=== PATIENT | male | born 1995 | race Caucasian/White ===

== ENCOUNTER 2024-05-28 08:01 | Emergency (ER) | payer OTHER, SELFPAY ==
--- NOTE | ~2024-05-28 | XR_ITS ---
EXAMINATION: XR SHOULDER, RIGHT CLINICAL INFORMATION: ?dislocation/relocation, R shoulder pain COMPARISON: None available. TECHNIQUE: AP external rotation, Grashey, scapular Y, and axillary views of the right shoulder. FINDINGS: No evidence of acute fracture. Glenohumeral and acromioclavicular alignment is anatomic with normal joint space. No abnormal soft tissue calcifications. 7 mm nonspecific sclerotic focus in the lateral humeral head. XR/XR shoulder RT min 2V IMPRESSION: No radiographic evidence of acute fracture or malalignment. Nonspecific 7 mm sclerotic focus in the lateral humeral head. Electronically signed by: Yamil Tapia MD 05/28/2024 09:19 AM [facility]
--- NOTE | 2024-05-28 08:05 | ED_ITS ---
HPI - Extremity Injury (Upper) General Chief Complaint: Extremity Injury, Upper Stated Complaint: ?SHLDR DISLOCATION PER EMS Time Seen by Provider: 05/28/24 08:05 Source: patient, EMS, RN notes reviewed and old records reviewed Mode of arrival: EMS History of Present Illness ED Provider: Susie Saxena PA-C HPI narrative: 28-year-old male with a past medical history of previous shoulder dislocation presenting to the ED via EMS complaining of right shoulder pain and ?Dislocation s/p hitting arm on ice machine at work [employer] at [employer]. States felt like arm popped out of place/heaard crack and was unable to move. Patient states he then shook his arm and feels as though he may put back into place. Reports continued pain and limited ROM secondary to pain. Denies numbness, tingling. Denies injury to the area. Related Data Allergies Allergy/AdvReac Type Severity Reaction Status Date / Time No Known Allergies Allergy Verified 05/28/24 08:17 Review of Systems Review of Systems: Yes all other systems are reviewed and are negative Constitutional: Constitutional: Reports as per HPI [facility] Past Medical History Attestation statement: The following information was validated with the patient. Source: old records reviewed Social History Social History Smoked in Last 30 Days: No Use of substances other than those prescribed or required for medical reasons: No Advance Directives: No Advance Directives Information Provided: Yes Physical Exam Vital Signs: Vital Signs: Last Vital Signs Temp 97.7 F 05/28/24 09:59 Pulse 78 05/28/24 09:59 Resp 16 05/28/24 09:59 BP 105/68 05/28/24 09:59 Pulse Ox 98 05/28/24 09:59 O2 Del Method Room Air 05/28/24 09:59 BMI result Body Mass Index 20.8 Const: General: cooperative, healthy appearing and no acute distress Orientation/consciousness: patient oriented x3 Limitations: no limitations HEENT: Head: Yes normal to inspection and Yes atraumatic Ears: hearing grossly normal bilaterally General nose exam: Normal external nose present Face and sinus: Yes normal facial exam Eyes: General: appearance normal, both eyes and all related structures EOM: EOMs intact bilaterally Neck: Neck: Yes normal visual inspection and Yes no meningeal signs Resp: Effort & Inspection: normal respiratory effort and no respiratory distress Cardio: Rate: regular rate Back/Spine/Pelvis: Other: No midline cervical/thoracic/lumbar spinous tenderness/step-off or deformity Skin: Rashes: no rashes Wounds: no wounds Neuro: General: patient oriented x3, tone normal and no meningeal signs Cranial nerves: Yes CN's II-XII intact bilaterally Gait exam (Neuro): Normal gait present Extrem: Other: Right shoulder without noted deformity. Diffusely tender to palpation. Limited ROM secondary to pain. Neurovascularly intact distally. No erythema/ecchymosis or warmth General: Yes normal to inspection Course Course Course Narrative: XR shoulder RT min 2V IMPRESSION: No radiographic evidence of acute fracture or malalignment. Nonspecific 7 mm sclerotic focus in the lateral humeral head. Results discussed with patient > will give sling for 2 days due to possible dislocation/relocation and pain management, although of lower suspicion. -Discussed worrisome signs and symptoms and strict return precautions, and when to return to the emergency department. They verbalized understanding and feel safe for discharge at this time. Medications Administered Discontinued Medications Generic Name Dose Route Start Last Admin Trade Name Freq PRN Reason Stop Dose Admin Ketorolac Tromethamine 30 mg 05/28/24 08:29 05/28/24 08:30 Ketorolac Tromethamine 30 Mg/Ml Vial IVPUSH 05/28/24 08:30 30 mg ONCE ONE Administration Medical Decision Making Medical Decision Making [facility] Narrative: 28-year-old male with a past medical history of previous shoulder dislocation presenting to the ED via EMS complaining of right shoulder pain and ?Dislocation s/p hitting arm on ice machine at work [employer] at [employer]. On exam vital signs stable, NAD, nontoxic appearing. Physical exam as noted above. Concern for possible dislocation/relocation vs strain vs fracture. No evidence of septic joint/arthritis. Unlikely ACS Plan: X-ray, pain control Please refer to course for remaining clinical decision making, interpretation of labs/imaging results, and discussions with consultants and/or family members. Differential Diagnosis Differential Diagnoses: The differential diagnosis associated with the presentation includes As above Admission/Observation Consideration of admission/observation: Escalation of care including admission/observation considered Independent Interpretation I performed an independent interpretation of an: Plain X-Ray Radiology Impression Discussion of test interpretation with radiology: I have reviewed the radiologist's reading. Independent Historian Clinical information obtained from an independent historian. History obtained from or confirmed by: EMS External Record Review External record reviewed: Inpatient record, Office record, Outpatient record, Prior outpatient labs, Prior outpatient radiology, Primary care record and Outside ED record Tests considered The following testing was considered but not selected: As above Prescription Management I considered prescription management with: Pain Medication Social Determinants Patient?s care significantly limited by Social Determinants of Health including: Low income and Other Social Determinant of Health Discharge Plan Discharge Clinical Impression: Acute pain of right shoulder Patient Disposition: Home, Self-Care Instructions: Shoulder Pain (ED) Additional Instructions: Your x-ray does not show any evidence of fracture or dislocation Ice Take Tylenol and Motrin for pain Wear sling for 2 DAYS ONLY. THEN YOU NEED TO BE MOVING AND RANGE OF MOTION IN YOUR SHOULDER Follow-up with your doctor as well as Orthopedics as needed Referrals: [facility] Family Medicine [Provider Group] [facility] Primary Care, Karen [Provider Group] [facility] Primary Care,Carine [Provider Group] [facility] [Provider Group] [facility] [Provider Group] Stand Alone Forms: Work/School Release Interventions: ED Discharge Assessment Last Done: 05/28/24 09:59 Discharge Date/Time: 05/28/24 10:00 Print Language: Lithuanian
[2024-05-28 08:08] VITALS: BP 157/91; PULSE 98; O2SAT 100
[2024-05-28 08:14] VITALS: BP 134/72; PULSE 110; RESP 16; TEMP 36.5; O2SAT 98; BMI 20.8
[2024-05-28] MEDS: Ketorolac Tromethamine 30 MG/ML VIAL IVPUSH (08:30)
[2024-05-28 09:59] VITALS: BP 105/68; PULSE 78; RESP 16; TEMP 36.5; O2SAT 98
== END 2024-05-28 10:00 | disposition home or self-care (01) ==
PROVIDERS: Emergency Provider Emergency Medicine Emergency Medical Services
DX: M25.511 Pain in right shoulder (principal); S49.91XA Unspecified injury of right shoulder and upper arm, initial encounter; W22.8XXA Striking against or struck by other objects, initial encounter; Y93.9 Activity, unspecified; Y92.89 Other specified places as the place of occurrence of the external cause; Y99.0 Civilian activity done for income or pay
CPT/HCPCS: 73030; 96374; 99284; J1885

== ENCOUNTER 2024-06-07 09:40 | Outpatient (AMB) | payer OTHER, SELFPAY ==
--- NOTE | 2024-06-07 09:50 | MHC.OFFVIS ---
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 Patient reports he hit his arm on the ice machine [employer] at work. He states that his arm felt like it popped out of place and heard a crack and was unable to move. Patient mentions he then shook his arm and feels as though he may have put back into place. 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 He has numbness travel up into his neck, shoulder blade and clavicle area. He has cracking with movement of his arm. Pain with ROM and feels his shoulder is not stable. States he feels his clavicle is more forward than his left side. States pain in his elbow. 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 He states he has a history of right shoulder dislocation at about 5yo, he states someone pulled his arm and it came out. He states it happened again around 16yo and over the last 5 years, at least once a year. He states when it comes out he tries to put it back in himself He states when it does come out he is unable to move the arm at all. He only went to the ED 1 or 2 times to have it relocated. No surgery on the right shoulder, no other imaging. He states he has done physical therapy on several occasions and there would be temporary relief until he had another dislocation. He states since these episodes, he is unable to perform DL's with weight or overhead due to feeling of instability. Patient states he works at [employer]. 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 He has full range of motion in all planes. Positive sulcus sign. Positive apprehension test. Neurovascularly intact. Results Reviewed Results Reviewed: X-rays of the right shoulder obtained on May 28 are negative for any acute or chronic abnormalities. Assessment & Plan Assessment & Plan (1) Instability of right shoulder joint: Code(s): M25.311 - Other instability, right shoulder Category: Medical Plan An MRI of the right shoulder has been ordered to further evaluate the ligamentous structures as he has failed conservative treatment including physical therapy.. We did discuss the benefits of continuing with his home exercises for postural training and stability of the right shoulder. Once the MRI is complete we will see him back to discuss the next step in his treatment. Orders: Orders MR shoulder RT w con Today M25.311 - Other instability, right shoulder Coding Level of Care Code New Pt Level 3 (33527) Diagnoses Instability of right shoulder joint M25.311
[2024-06-07 10:14] VITALS: BMI 20.8
== END 2024-06-07 10:53 | disposition home or self-care (01) ==
PROVIDERS: PCP Family Medicine; Visit Provider Physician Assistant
DX: M25.311 Other instability, right shoulder (principal)
CPT/HCPCS: 99203

== ENCOUNTER → 2024-06-07 09:40 | Outpatient (BNVA) | payer OTHER, SELFPAY | PROVIDERS: PCP Family Medicine; Visit Provider Physician Assistant | DX: M25.311 Other instability, right shoulder (principal) | CPT/HCPCS: 99202 ==

== ENCOUNTER 2024-06-26 14:28 | Emergency (ER) | payer OTHER, SELFPAY ==
--- NOTE | ~2024-06-26 | US_ITS ---
CLINICAL HISTORY: TESTICULAR PAIN US Scrotum with Doppler Comparison: None Findings: Right testicle measures 4.5 x 1.7 x 3.1 cm in size. Right testicle is of normal echotexture without mass lesion. There is heterogeneity of the right epididymis with diffuse hyperemia. Left testicle measures 4.8 x 2.0 x 2.7 cm in size. Left testicle is of normal echotexture without mass lesion. Left epididymis is unremarkable. No scrotal wall thickening. Duplex evaluation of the testicles was performed. This included real-time grayscale, color spectral Doppler analysis, and color Doppler flow imaging. Documented blood flow to both testicles. No significant testicular hyperemia. IMPRESSION: Right-sided epididymitis. This document has been electronically signed by: Randy Whitaker MD on 06/26/2024 16:15:20
[2024-06-26 14:35] VITALS: BP 146/71; PULSE 115; RESP 19; TEMP 36.6; O2SAT 100; BMI 23.8
--- NOTE | 2024-06-26 15:01 | ED_ITS ---
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 RME assessment and note performed by: Sindhu Patton PA-C This is a 26-nfld-lfh-male who presents to the ER with complaints of right testicular pain. Patient states that he masturbated last night, and noticed slight discomfort. He states that at 11 this morning, he felt pain and swelling in his right scrotum therefore he masturbated again, states that he had wo rsening pain. Patient reports pain worsens with movement. Plan: Ultrasound, UA, further ER evaluation needed. Discharge Plan Discharge Prescriptions: No Action acetaminophen 325 mg tablet 650 mg PO Q4-6H PRN (Reason: fever or pain) 30 Days Qty: 240 0RF Print Language: Hungarian
[2024-06-26 15:56] LABS: Appearance Urine Cloudy; Color Urine Yellow; Glucose Urine UA Negative (Negative); Leukocyte Esterase Urine Moderate (2+) (Negative); Nitrite Urine Negative (Negative); PH 5.5 (5.0-9.0); Specific Gravity - Urine >= 1.030 (1.005-1.025); UMIC TRIGGER UACC YES; Urine Blood Large (3+) (Negative); Urine Ketones Trace mg/dL (Negative); Urine Protein 30 (1+) mg/dL (Neg-Trace)
[2024-06-26 16:08] VITALS: BP 91/51; PULSE 98; RESP 18; TEMP 36.6; O2SAT 99
--- NOTE | 2024-06-26 16:13 | ED.MALEGU ---
HPI - Male Genitourinary General Chief complaint: Urogenital-Male Stated complaint: swollen testicles Time Seen by Provider: 06/26/24 15:27 Source: patient Mode of arrival: ambulatory Limitations: no limitations History of Present Illness HPI Narrative: This is a 28 years old the patient presented to the ED with a chief complaint of right testicular pain which started this morning also he had the hemospermia yesterday. 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 Complaint: testicle pain Onset (ago): hour(s) (8) Duration: constant Location: right testicle Severity: mild Quality: aching Relieving factors: none Exacerbating factors: none Related Data Previous Rx's ?Medication ?Instructions ?Recorded acetaminophen 325 mg tablet 650 mg (2 x 325 mg) PO Q4-6H PRN 06/07/24 fever or pain 30 days #240 tabs ciprofloxacin HCl 500 mg tablet 500 mg PO Q12H #20 tabs 06/26/24 (Cipro) ibuprofen 800 mg tablet 800 mg PO TID PRN pain #20 tabs 06/26/24 Allergies Allergy/AdvReac Type Severity Reaction Status Date / Time No Known Allergies Allergy Verified 06/26/24 14:38 Review of Systems Constitutional: Constitutional: Reports no additional constitutional complaints ENT: Reports system reviewed and no additional complaints, except as documented Cardiovascular: Cardiovascular: Reports no additional cardiovascular complaints [facility] Past Medical History Attestation statement: The following information was validated with the patient. 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, [employer] Physical Exam Vital Signs: Vital Signs: Last Vital Signs Temp 97.8 F 06/26/24 16:08 Pulse 98 06/26/24 16:08 Resp 18 06/26/24 16:08 BP 91/51 L 06/26/24 16:08 Pulse Ox 99 06/26/24 16:08 O2 Del Method Room Air 06/26/24 16:08 BMI result Body Mass Index 23.8 No acute distress Const: General: cooperative, healthy appearing, comfortable and no acute distress Nutritional Appearance: average body habitus Orientation/consciousness: patient oriented x3 Limitations: no limitations HEENT: Head: Yes normal to inspection General nose exam: Normal external nose present Mouth: Normal oral and palatal mucosa present Neck: Neck: Yes normal visual inspection Chest: Chest palpation & inspection: normal inspection of the chest Resp: Effort & Inspection: normal respiratory effort and able to speak in complete sentences Cardio: Jugular venous distension: no JVD Rate: regular rate Rhythm: regular rhythm GI: Other: Soft nontender and no guarding no rebound Inspection: Yes normal to inspection Palpation (GI): Soft to palpation, not firm and nontender Auscultation: normal bowel sounds Skin: General skin exam: no rashes or lesions noted and elasticity normal Lesions: no lesions Rashes: no rashes Neuro: General: patient oriented x3 Cranial nerves: Yes CN's II-XII intact bilaterally Coordination: [id number] test normal Course Reevaluation(s) Reevaluation #1: Clinical picture consistent with a right-sided epididymitis, we will discharge patient on p.o. antibiotic anti-inflammatory medication he is comfortable with the plan of care Time: 16:51 Medical Decision Making Medical Decision Making [facility] Narrative: Patient presented to the ED with a chief complaint of right testicular pain we will obtain imaging UA labs Differential Diagnosis Differential Diagnoses: The differential diagnosis associated with the presentation includes Epididymitis/UTI/orchitis Admission/Observation Consideration of admission/observation: Escalation of care including admission/observation considered Lab Data [facility] Lab Attestation statement: I reviewed the patient's lab results. 06/26/24 16:19 06/26/24 16:19 Labs: Lab Results 06/26/24 06/26/24 Range/Units 15:38 16:19 WBC 12.0 H (4.8-10.8) X10*3/uL RBC 3.86 L (4.60-5.80) X10*6/uL Hgb 12.4 L (14.0-18.0) g/dl Hct 36.5 L (42.0-52.0) % MCV 94.6 (80.0-98.0) fL MCH 32.1 (27.0-33.0) pg MCHC 34.0 (31.0-36.0) g/dl RDW 11.9 (11.0-16.0) % Plt Count 205 (160-400) X10*3/uL MPV 8.4 L (9.4-12.4) fL Immature Gran % (Auto) 0.5 H (0.0-0.4) % Neut % (Auto) 77.5 H (45-73) % Lymph % (Auto) 12.1 L (20-40) % [place] % (Auto) 9.7 (2-11) % Eos % (Auto) 0.1 (0-4) % Baso % (Auto) 0.1 (0-2) % Lymph # (Auto) 1.5 (1.2-4.9) X10*3/uL [place] # (Auto) 1.2 (0.1-1.2) X10*3/uL Eos # (Auto) 0.0 (0.0-0.4) X10*3/uL Baso # (Auto) 0.0 (0.0-0.2) X10*3/uL Abs Immat Gran (auto) 0.06 H (0.00-0.03) X10*3/uL Absolute Neuts (auto) 9.3 H (2.0-8.3) x10*3/uL Absolute Nucleated RBC 0.000 (0.0-0.012) X10*3/uL Nucleated RBC % (auto) 0.0 (0.0-0.2) /100WBC Sodium 140 (135-145) mmol/L Potassium 3.8 (3.3-5.1) mmol/L Chloride 105 (96-108) mmol/L Carbon Dioxide 28 (22-29) mmol/L Anion Gap 11 L (12-20) BUN 16 (9-16) mg/dL Creatinine 1.03 (0.5-1.4) mg/dL Estim Creat Clear Calc 87.8 Estimated GFR > 60 Random Glucose 95 (60-115) mg/dL Calcium 8.8 (8.4-10.2) mg/dL Total Bilirubin 0.3 (0.0-1.0) mg/dL AST 29 (5-37) U/L ALT 10 (0-40) U/L Alkaline Phosphatase 49 (39-117) U/L Total Protein 7.2 (6.5-8.0) g/dL Albumin 4.3 (3.5-5.0) g/dL Urine Color Yellow Urine Appearance Cloudy Urine pH 5.5 (5.0-9.0) Ur Specific [place] >= 1.030 H (1.005-1.025) Urine Protein 30 (1+) H (Neg-Trace) mg/dL Urine Glucose (UA) Negative (Negative) mg/dL Urine Ketones Trace (Negative) mg/dL Urine Blood Large (3+) H (Negative) Urine Nitrite Negative (Negative) Ur Leukocyte Esterase Moderate (2+) H (Negative) Urine RBC 6-10 H (0-2) /HPF Urine WBC 6-10 (0-5) /HPF Ur Squamous Epith Cells 0-2 (0-2) /HPF Urine Bacteria None Seen (None Seen) Hyaline Casts 0-2 (0-2) /LPF Independent Interpretation I performed an independent interpretation of an: Ultrasound Radiology Impression Discussion of test interpretation with radiology: I have reviewed the radiologist's reading. Prescription Management I considered prescription management with: Pain Medication and Antibiotic Discharge Plan Discharge Clinical Impression: Epididymitis Patient Disposition: Home, Self-Care Instructions: Epididymitis (ED) Additional Instructions: Take antibiotic as directed return to the emergency room if worse Prescriptions: New ciprofloxacin HCl [Cipro] 500 mg tablet 500 mg PO Q12H Qty: 20 0RF ibuprofen 800 mg tablet 800 mg PO TID PRN (Reason: pain) Qty: 20 0RF No Action acetaminophen 325 mg tablet 650 mg PO Q4-6H PRN (Reason: fever or pain) 30 Days Qty: 240 0RF Referrals: Dago Grewal MD [Physician] - 06/30/24 Print Language: Georgian
[2024-06-26 16:18] LABS: Bacteria Urine None Seen (None Seen); Hyaline Casts Urine 0-2 /LPF (0-2); Squamous Epithelial Cell Urine 0-2 /HPF (0-2); UACC Culture Trigger YES
[2024-06-26 16:23] LABS: MANUAL DIFF FLAG NO
[2024-06-26 16:27] LABS: Basophils Percent Auto 0.1 % (0-2); Eosinophils Percent Auto 0.1 % (0-4); Hematocrit 36.5 % (42.0-52.0); Hemoglobin 12.4 g/dl (14.0-18.0); Imm Gran Abs Auto 0.06 X10*3/uL (0.00-0.03); Imm Gran Pct Auto 0.5 % (0.0-0.4); Lymphocytes Absolute Auto 1.5 X10*3/uL (1.2-4.9); Lymphocytes Percent Auto 12.1 % (20-40); Mean Corpuscular Hemoglobin 32.1 pg (27.0-33.0); Mean Corpuscular Volume 94.6 fL (80.0-98.0); Mean Platelet Volume 8.4 fL (9.4-12.4); Monocytes Absolute Auto 1.2 X10*3/uL (0.1-1.2); Monocytes Percent Auto 9.7 % (2-11); Neutrophils Absolute Auto 9.3 x10*3/uL (2.0-8.3); Neutrophils Percent Auto 77.5 % (45-73); Platelet Count 205 X10*3/uL (160-400); Red Blood Count 3.86 X10*6/uL (4.60-5.80); Red Cell Distribution Width 11.9 % (11.0-16.0)
[2024-06-26 16:37] LABS: Alanine Aminotransferase 10 U/L (0-40); Albumin Level 4.3 g/dL (3.5-5.0); Alkaline Phosphatase 49 U/L (39-117); Anion Gap 11 (12-20); Aspartate Amino Transferase 29 U/L (5-37); Bilirubin Total 0.3 mg/dL (0.0-1.0); Blood Urea Nitrogen 16 mg/dL (9-16); Calcium 8.8 mg/dL (8.4-10.2); Carbon Dioxide 28 mmol/L (22-29); Chloride 105 mmol/L (96-108); Creatinine Clr Calc Pharmacy 87.8; Estimated Glomerular Filt Rate > 60; Glucose Random 95 mg/dL (60-115); Potassium 3.8 mmol/L (3.3-5.1); Sodium 140 mmol/L (135-145); Total Protein 7.2 g/dL (6.5-8.0)
[2024-06-26 17:12] VITALS: BP 91/51; PULSE 98; RESP 18; TEMP 36.6; O2SAT 99
[2024-06-26] MEDS: Ibuprofen 800 MG TABLET PO (17:12)
[2024-06-27 14:46] LABS: CT PCR NOT DETECTED (Not Detect.); NG PCR NOT DETECTED (Not Detect.)
== END 2024-06-26 17:14 | disposition home or self-care (01) ==
PROVIDERS: Physician Assistant Medical; Emergency Provider Emergency Medicine; PCP Family Medicine
DX: N45.1 Epididymitis (principal); N50.811 Right testicular pain
CPT/HCPCS: 36415; 76870; 80053; 81001; 85025; 87086; 87491; 87591; 93975; 99283; 99284

== ENCOUNTER → 2024-06-26 15:01 | Outpatient (BNV) | payer OTHER, SELFPAY | PROVIDERS: Emergency Provider Emergency Medicine; PCP Family Medicine; Visit Provider Radiology Diagnostic Radiology | DX: N45.1 Epididymitis (principal) | CPT/HCPCS: 93975 ==